=== PATIENT | male | born 1945 | race Caucasian/White ===

== ENCOUNTER 2019-04-18 16:22 | Inpatient (IN) | payer OTHER ==
[~2019-04-18] VITALS: Ht 182.9 cm; Wt 63.5 kg
[~2019-04-18 16:22] MED LIST: LISI20 PO
[2019-04-18] MEDS ORDERED: ASPI325 PO (17:13)
[2019-04-18] MEDS ORDERED: Prinivil10 MG PO (17:13)
[2019-04-18 17:35] LABS: BASOPHILS ABSOLUTE AUTO 0.04 K/mm3 (0.00-0.23); BASOPHILS PERCENT AUTO 0 % (0-2); EOSINOPHILS ABSOLUTE AUTO 0.07 K/mm3 (0.00-0.68); EOSINOPHILS PERCENT AUTO 1 % (0-6); Hematocrit 25.1 % (37.0-53.0); Hemoglobin 8.8 g/dL (13.5-17.5); IMMATURE GRAN ABSOLUTE AUTO 0.04 K/mm3 (0.00-0.10); IMMATURE GRAN PERCENT AUTO 0 % (0-1); LYMPHOCYTES ABSOLUTE AUTO 1.13 K/mm3 (0.84-5.20); LYMPHOCYTES PERCENT AUTO 12 % (21-46); MONOCYTES ABSOLUTE AUTO 1.02 K/mm3 (0.16-1.47); MONOCYTES PERCENT AUTO 11 % (4-13); Mean Corpuscular HGB 37.6 pg (26.0-34.0); Mean Corpuscular HGB Conc 35.1 g/dL (31.5-36.5); Mean Corpuscular Volume 107 fL (80-100); Mean Platelet Volume 9.2 fL (9.1-12.4); NEUTROPHILS ABSOLUTE AUTO 6.91 K/mm3 (1.96-9.15); NEUTROPHILS PERCENT AUTO 75 % (41-73); Platelet Count 245 K/mm3 (150-400); RDW Coefficient Variation 12.3 % (11.7-14.2); RDW Standard Deviation 47.9 fL (35.1-46.3); Red Blood Cell Count 2.34 M/mm3 (4.30-5.90); White Blood Cell Count 9.21 K/mm3 (4.00-11.30)
[2019-04-18 17:49] LABS: Albumin, Blood 1.9 g/dL (3.4-5.0); Albumin/Globulin Ratio 0.6 (0.8-1.8); Bilirubin, Total 0.5 mg/dL (0.1-1.0); Calcium, Blood 7.2 mg/dL (8.5-10.1); Creatinine, Blood 2.36 mg/dL (0.60-1.20); Potassium, Blood 4.7 mmol/L (3.5-5.5); Total Protein, Blood 4.9 g/dL (6.4-8.2); Troponin I 0.029 ng/mL (0.000-0.040)
[2019-04-18 20:31] LABS: Source, Urine Catheter
[2019-04-18] MEDS ORDERED: Zocor20 MG PO (20:32)
[2019-04-18] MEDS ORDERED: SENN187 PO (20:32)
[2019-04-18] MEDS ORDERED: ASCO500 PO (20:33)
[2019-04-18] MEDS ORDERED: ZINC220 PO (20:33)
[2019-04-18 20:34] LABS: Phosphorus, Blood 2.9 mg/dL (2.5-4.9)
[2019-04-18 20:35] LABS: Appearance, Urine Turbid (Clear); Bilirubin, Urine Neg (Neg); Blood, Urine 5+ (Neg); Color, Urine Brown (P-Yellow); Glucose Qualitative, Urine Neg (Neg); Ketones, Urine 1+ (Neg); Leukocyte Esterase, Urine 2+ (Neg); Nitrite, Urine Pos (Neg); Protein, Urine 4+ (Neg); Specific Gravity, Urine 1.015 (1.003-1.022); Urobilinogen, Urine NORM (Normal)
[2019-04-18 20:41] LABS: Vancomycin, Random 26.2 ug/mL
[2019-04-18 20:47] LABS: Bacteria Few /hpf; Red Blood Cells, Urine TNTC /hpf (0-2); Squamous Epithelial Cells Few /hpf (Few)
[2019-04-18 21:20] LABS: International Normalized Ratio 0.97; Prothrombin Time Results 10.3 Sec (9.7-11.5)
--- NOTE | 2019-04-18 23:30 | NUR ---
ASSUMED CARE- PT ARRIVES TO PCU2 FROM ER AT APPROXIMATELY 2300 THIS EVENING. PT IS ALERT AND ORIENTED TO SELF AND TOWN, BUT NOT ORIENTED TO PLACE, DATE/TIME OR EVENT. PT IS VERY PLEASANT AND FOLLOWING DIRECTIONS WELL. VSS. PT SLID OVER TO HOSPITAL BED VIA SLIDER SHEET. LUNG SOUNDS COARS IN SANDEEP AND DIMINISHED THROUGHOUT. PT NOTED TO HAVE EDEMA TO BILATERAL THIGHS, THIGHS, AND BUE'S THAT IS NON-PITTING. BLE'S WITH MULTIPLE DRY, OPEN SORES AND REDNESS FROM CELLULITIS, NO DRAINAGE NOTED FROM OPEN SPOTS- PHOTOS TAKEN AND PLACED IN CHART BY [employer] SOFTWARE DEVELOPMENT ENGINEER. CORCORAN CATHETER PATENT AND DRAINING VERY SMALL AMOUNT OF DARK BROWN/RED URINE. WILL CONTINUE WITH ADMISSION AND ASSESSMENT. PT ORIENTED TO PLACE, DATE AND UNIT. CALL LIGHT SYSTEM EXPLAINED AND CALL LIGHT PLACED IN REACH. BED ALARM SET FOR SAFETY.
[2019-04-18] MEDS ORDERED: ALBU2.5V5 NEB (23:33)
[2019-04-18] MEDS ORDERED: ATEN25 PO (23:33)
[2019-04-18] MEDS ORDERED: ENOX40I SC (23:34)
[2019-04-18] MEDS ORDERED: FOLI1 PO (23:34)
[2019-04-18] MEDS ORDERED: MAGOXI400 PO (23:39)
[2019-04-18] MEDS ORDERED: LORA1 PO (23:39)
[2019-04-18] MEDS ORDERED: THERA1 EACH PO (23:39)
[2019-04-18] MEDS ORDERED: Nicoderm Cq1 EACH TOP (23:40)
[2019-04-18] MEDS ORDERED: B-1100 MG PO (23:41)
[2019-04-19 04:06] LABS: Hematocrit 26.3 % (37.0-53.0); Hemoglobin 9.1 g/dL (13.5-17.5); Mean Corpuscular HGB 37.4 pg (26.0-34.0); Mean Corpuscular HGB Conc 34.6 g/dL (31.5-36.5); Mean Corpuscular Volume 108 fL (80-100); Mean Platelet Volume 9.4 fL (9.1-12.4); Platelet Count 259 K/mm3 (150-400); RDW Coefficient Variation 11.9 % (11.7-14.2); RDW Standard Deviation 47.2 fL (35.1-46.3); Red Blood Cell Count 2.43 M/mm3 (4.30-5.90); White Blood Cell Count 9.72 K/mm3 (4.00-11.30)
[2019-04-19 04:33] LABS: Alanine Aminotransfer (ALT/SGP 32 U/L (12-78); Albumin, Blood 2.1 g/dL (3.4-5.0); Albumin/Globulin Ratio 0.7 (0.8-1.8); Alk Phos 83 U/L (50-136); Anion Gap 11 mmol/L (6-16); Aspartate Aminotrans (AST/SGOT 58 U/L (12-37); Bilirubin, Total 0.6 mg/dL (0.1-1.0); Blood Urea Nitrogen 31 mg/dL (8-24); Bun/Creatinine Ratio 11.9 (12.0-20.0); CO2, Blood 16 mmol/L (21-32); CPK Creatine Kinase 203 U/L (39-308); Calcium, Blood 7.6 mg/dL (8.5-10.1); Chloride, Blood 102 mmol/L (98-108); Creatinine, Blood 2.61 mg/dL (0.60-1.20); Globulin, Blood 2.9 g/dL (2.2-4.0); Glomerular Filtration Rate 26 (60-); Glucose, Blood 53 mg/dL (70-99); Phosphorus, Blood 3.8 mg/dL (2.5-4.9); Potassium, Blood 4.7 mmol/L (3.5-5.5); Sodium, Blood 129 mmol/L (136-145)
--- NOTE | 2019-04-19 06:49 | NUR ---
SHIFT SUMMARY PT HAS REMAINED ORIENTED TO SELF THROUGHOUT THE NIGHT AND FOLLOWS DIRECTIONS, BUT IS DISORIENTED TO PLACE AND EVENT. CIWA UPON ARRIVAL OF 5 DUE TO VISUAL HALLUCINATION OF SEEING SOMEONE IN ROOM THAT WAS NOT PRESENT, BUT HALLUCINATIONS ARE NOT CONSTANT AND PT HAS NOT REPORTED SINCE.PT HAS SLEPT THROUGHOUT MUCH OF THE NIGHT, WAKING EASILY FOR CARE AND FALLING BACK TO SLEEP QUICKLY AFTER CARE PROVIDED. PT COOPERATIVE WITH INTERVENTIONS. CIWA HAS NOT INCREASED SINCE ARRIVAL. CORCORAN CATHETER REPLACED THIS AM BY BALE TIE MACHINE OPERATOR. NO OTHER CHANGES NOTED FROM INITIAL ASSESSMENT. WILL CONTINUE TO MONITOR AND REPORT TO ONCOMING SHIFT RN. BED IN LOW POSITION, CALL LIGHT IN REACH. BED ALARM SET FOR SAFETY.
--- NOTE | 2019-04-19 17:07 | NUR ---
SHIFT SUMMARY. PT IS CURRENTLY NPO, PT WAS ATTEMPTING TO DRINK MILK THIS AM AND STARTED COUGHING, PT WAS SUCTIONED AND SPEECH THERAPY SAW PT. PT IS CURRENTLY NPO. PT HAS HAD FAMILY AT THE BED SIDE OFF AND ON T/O THE SHIFT. PT'S CORCORAN IS DRAINING VERY SMALL AMOUNT OF TEA COLORED URINE. PT'S PEDRO LUIS ARE EDEMATOUS AND THIS HAS INCREASED T/O THE SHIFT WELL. PT IS IN NSR IN THE 60'S PER HAND SPRAY OPERATOR WITH NO CARDIAC EVENTS. PT'S CWIA SCORES HAVE BEEN 0. PT IS STILL CONFUSED BUT ABLE TO RECOGNIZE FAMILY AND FOLLOW DIRECTIONS. CALL LIGHT IN REACH, BED ALARM IS ON WILL CONTINUE TO MONITOR UNTIL REPORT IS GIVEN TO ONCOMING RN.
[2019-04-19 21:16] LABS: Albumin, Blood 1.8 g/dL (3.4-5.0); Anion Gap 14 mmol/L (6-16); Blood Urea Nitrogen 34 mg/dL (8-24); Bun/Creatinine Ratio 11.3 (12.0-20.0); CO2, Blood 18 mmol/L (21-32); Calcium, Blood 7.4 mg/dL (8.5-10.1); Chloride, Blood 100 mmol/L (98-108); Glomerular Filtration Rate 22 (60-); Glucose, Blood 108 mg/dL (70-99); Phosphorus, Blood 4.2 mg/dL (2.5-4.9); Potassium, Blood 4.7 mmol/L (3.5-5.5); Sodium, Blood 132 mmol/L (136-145)
--- NOTE | 2019-04-19 23:00 | NUR ---
PT AGITATION PT CALLING OUT FOR HELP INTO HALLWAY AFTER ASSITANCE HAD BEEN PROVIDED TO CALL SPOUSE. UPON ENTERING ROOM AND INQUIRING TO NEEDS, PT IS RAISING VOICE AND STATING HE NEEDS TO CALL HIS . PT GROWS INCREASINGLY AGITATED WHEN INFORMED THAT HE JUST SPOKE TO . PT IS CURRENTLY DISORIENTED TO PLACE AND EVENT STATING HE "HAS BEEN HERE FOR 5 DAYS AND WE HAVEN'T DONE ANYTHING FOR HIM". PT EDUCATED ON APPROPRIATE COMMUNICATION METHODS WITH STAFF AND UPDATED ON CURRENT TREATMENTS BEING IMPLEMENTED. PT ALSO UPDATED ON DISEASE PROCESS AND STATUS. CALMED SLIGHTLY AFTER PROVIDING UPDATE. FAMILY MEMBER STOPPED BY TO VISIT WITH PATIENT AND INFORMED THIS RN THAT PATIENT HAS WORSENING DEMENTIA AT BASELINE AND REPORTS THAT HE OFTEN BECOMES IRRITABLE AND ANGRY. PT CURRENTLY LIVES AT HOME WITH SPOUSE. FAMILY MEMBER EXPRESSED CONCERN OF PT AND SPOUSE BEING ABLE TO CARE FOR HIM. SALES COMMUNICATIONS MANAGER AND PALLIATIVE CARE CONSULT INPUT FOR ADVANCED CARE PLANNING AND DISCHARGE PLANNING.
[2019-04-20 03:48] LABS: Hematocrit 23.7 % (37.0-53.0); Hemoglobin 8.2 g/dL (13.5-17.5)
[2019-04-20 04:04] LABS: Albumin, Blood 1.8 g/dL (3.4-5.0); Anion Gap 10 mmol/L (6-16); Blood Urea Nitrogen 36 mg/dL (8-24); CO2, Blood 20 mmol/L (21-32); Calcium, Blood 7.2 mg/dL (8.5-10.1); Chloride, Blood 101 mmol/L (98-108); Glomerular Filtration Rate 22 (60-); Glucose, Blood 122 mg/dL (70-99); Magnesium, Blood 1.9 mg/dL (1.6-2.4); Phosphorus, Blood 4.2 mg/dL (2.5-4.9); Potassium, Blood 4.6 mmol/L (3.5-5.5); Sodium, Blood 131 mmol/L (136-145)
--- NOTE | 2019-04-20 06:10 | NUR ---
SHIFT SUMMARY PT HAS REMAINED ORIENTED TO SELF, TOWN, YEAR AND SITUATION THROUGHOUT SHIFT- CONTINUES TO BE DISORIENTED TO DATE AND TIME. VSS. MOSLTY COOPERATIVE WITH CARE. PT WITH NO FURTHER EPISODES OF IRRITABILITY FROM PREVIOUS EPISODE AND HAS SINCE BEEN VERY PLEASANT AND COOPERATIVE WITH CARE. URINE OUTPUT REMAINS MINIMAL, BUT HAS BECOME MORE ANGELA/YELLOW IN COLOR THROUGHOUT THE NIGHT. 24-HOUR URINE COMPLETE AT 0600 THIS AM. PT HAS SLEPT THROUGH MUCH OF THE NIGHT. DENIES PAIN. ORAL CARE PROVIDED WITH SUCTION SWABS AND OFFERED FREQUENTLY WHEN IN ROOM. NO OTHER CHANGES NOTED FROM INITIAL ASSESSMENT. WILL CONTINUE TO MONITOR AND REPORT TO ONCOMING SHIFT RN. BED IN LOW POSITION, CALL LIGHT IN REACH. BED ALARM SET FOR SAFETY.
[2019-04-20 07:11] LABS: Protein, Urine Quantitative 52.6 mg/dL (0.0-11.9)
--- NOTE | 2019-04-20 08:47 | NUR ---
NURSING PCU DAYSHIFT: Assumed care of pt at approx 0700. Arouses to verbal stimuli though falls back asleep easily, answers basic questions, appears forgetful, slow to respond. Denies any pain/discomfort. Skin is fragile w/scattered bruising on UE's, scattered abrasions to LE. General weakness noted, requires assistance w/positioning in bed. Tele in place, NSR, no c/o CP/pressure, SBP 140's, no c/o CP/pressure, mild edema noted to hips/thighs as well as BUE's. L/S coarse in mid and upper lobes, O2 sat mid 90's on RA, respirations shallow, unlabored, no noted cough. Abd SNT, BT hyperactive, FC present and draining well. PIV present in LFA, clinimix infusing at 75cc/hr, sodium bicarb infusing at 50cc/hr. No s/s of acute distress, pt denies any current needs. Awaiting rounding from PMD. Call light in reach, bed alarm set for safety purposes. Cont to monitor for any changes.
--- NOTE | 2019-04-20 16:52 | NUR ---
NURSING PCU DAYSHIFT TRANSFER SUMMARY: No significant changes noted t/o the shift. Pt more alert and interactive w/staff in the afternoon. Remains forgetful though is cooperative w/care. Denies any pain/discomfort. Seen by ST, remains NPO at this time. Worked w/PT/OT, dangled on bedside, tolerated fairly well. Several family members at bedside t/o shift, plan of care discussed w/spouse, questions answered. Pt changed to medical status w/o tele, rpt provided to accepting RN. [facility] by [facility] for [facility] shunt [facility], awaiting reports. Spouse notified of new room assignment, denied questions. Cont to monitor until xfer is completed.
--- NOTE | 2019-04-20 17:01 | NUR ---
Pt resting not in a this time. Review of patient with nursing, and post acute care nurse. Review of [facility] records and chart. Pt is non abulatory and NPO. Review of the therapists notes and labs. pt able to answer some questions and tell me what is on TV. He constantly coughs and swallows possibly sputem. He denies headache or pain, he is mad at for leaving and not bringing him food. He sratches his chest and abdomen frequently. He can turn his head but would not lift it off the pillow. Pt is service conneted [place] 50 to 100%. Review of chart shows contact by [place] for neuro consult. Requested more records from [place] per nursing request also requested advance directive. Pt pps score is 20%. with pt comorbid conditions and malnutrition he may not tolerate any treatment or interventions. Patient is high risk for failure of a PEG tube and may be contraindicated due to his dementia. Review of patient with post acute care nurse. Suggest contact [facility] and discuss with and physicians plan of care tomorrow. If petrolia will see him and do work up. Need to discuss with their wishes. Hope is we will obtain his advance directive as a guide. chartered wealth manager will see what is offered to help with placement. Hospice may be best choice for pt and family to have some meaningfull time and reduce suffering. Pt is a DNR
--- NOTE | 2019-04-20 18:15 | NUR ---
PT. ARRIVED TO ROOM #360 VIA BED FROM U-2. PT. WANTING ME TO CALL TAXI SO HE CAN GET INTO THE OTHER BED. PT. SOMEWHAT CONFUSED AND KEEPS TRYING TO GET ANYONE HE CAN TO GET HIM A BURRITO. PT. CACHECTIC WITH WOUNDS ON HIS BLE WITH SCABS.PT. HAS AN 18 GA IV IN HIS LFA. CORCORAN CATHETER IN PLACE.
--- NOTE | 2019-04-20 19:53 | NUR ---
PT YELLING AND SCREAMING THAT HE NEEDS GO HOME VIA TAXI JACQUES, PT ATTEMPTED PULL AT CORCORAN (DISCONNECTED CATHETER FROM BAG), BAG RECONNECTED BY THIS NURSE DRAINING CLEAR YELLOW FLUID. Ewa GUTIERREZ NP CALLED AND ADVISED OF ABOVE WITH ORDERS FOR HALDOL 4MG, IVP X 1 AND RESTRAINTS--SOFT WRIST AND BILL VEST.
[2019-04-21 05:08] LABS: Hematocrit 24.2 % (37.0-53.0); Hemoglobin 8.5 g/dL (13.5-17.5)
--- NOTE | 2019-04-21 05:25 | NUR ---
SHIFT SUMMARY: 73 Y/O MALE HAD RESTLESS NIGHT AT BEGINNING OF SHIFT WITH PATIENT ATTEMPTING CLIMB OOB, PULLED CORCORAN BAG APART FROM CATHETER GRABING AT IV WHILE YELLING LOUDLY AT STAFF; PT WAS PLACED IN BILL VEST AND BILATERAL SOFT WRIST RESTRAINTS AFTER MD ORDER WAS RECEIVED VIA Ewa GUTIERREZ NP. PT IS ALERT TO PERSON ONLY, ABLE TO FOLLOW SIMPLE VERBAL COMMANS. PTS IV IN LFA WAS SQ WITHY ENTIRE CATHETER DC/D INTACT WITH PRESSURE DRESSING APPLIED AND NEW IV RESTARTED RFA, 20 GUAGE PER Ewa VACA RN. PTS LUNG SOUNDS ARE COARSE THROUGHOUT. PT STATED LAST NIGHT, "I COULD SURE USE A SHOT OF WHISKEY RIGHT NOW"! PTS BED ALARM APPLIED, BED LOW POSITION, CALL LIGHT AT SIDE.
[2019-04-21 05:36] LABS: Albumin, Blood 1.9 g/dL (3.4-5.0); Anion Gap 10 mmol/L (6-16); Blood Urea Nitrogen 47 mg/dL (8-24); Bun/Creatinine Ratio 15.5 (12.0-20.0); CO2, Blood 22 mmol/L (21-32); Calcium, Blood 7.5 mg/dL (8.5-10.1); Chloride, Blood 104 mmol/L (98-108); Creatinine, Blood 3.04 mg/dL (0.60-1.20); Glomerular Filtration Rate 22 (60-); Glucose, Blood 108 mg/dL (70-99); Phosphorus, Blood 4.5 mg/dL (2.5-4.9); Potassium, Blood 4.4 mmol/L (3.5-5.5); Sodium, Blood 136 mmol/L (136-145)
--- NOTE | 2019-04-21 18:43 | NUR ---
SHIFT SUMMARY PATIENT ALERT TO SELF AND FAMILY. CONFUSED. BEDREST. Q2 REPOSITION. SOFT WRIST RESTRAINTS IN PLACE DUE TO PATIENT PULLING AT CATHETER AND IV. Q 2 RESTRAINT ASSESSMENTS. C/O PAIN TO BLE THIS SHIFT, RN MEDICATED PER E DEC. DENIES SOB OR NAUSEA. ON RA. FAMILY AT THE BEDSIDE. CLINIMIX RUNNIG. BED ALARM IS ON. PATIENT YELLS OUT AT TIMES. RN MEDICATED X1 WITH PRN HYDRALAZINE FOR HIGH BP WHICH RESOLVED. NO ACUTE CHANGES THIS SHIFT. RN WILL CONTINUE TO MONITOR.
--- NOTE | 2019-04-21 19:04 | NUR ---
review of plan of care with daughter and her needs
--- NOTE | 2019-04-22 03:25 | NUR ---
0100 PTS BILATERAL LOWER FEET HAVE LARGE AMOUNT DRIED SCALLY SKIN NOTED AROUND NUMEROUS WOUNDS. THIS NURSE SOAKED FEET IN BASIN WARM WATER AND WASHED FEET GENTLY WITH LARGE AMOUNTS SCALLY SKIN REMOVED. THIS NURSE RETOOK MORE PICTURES AND APPLIED MEPLEX DRESSING TO RIGHT HEEL, LEFT HEEL, LEFT ANKLE ANTERIOR AND LATERAL WOUNDS ALL STAGE III ULCERS. PT TOLERATED PROCEDURES WELL.
[2019-04-22 04:41] LABS: Hematocrit 24.2 % (37.0-53.0); Hemoglobin 8.4 g/dL (13.5-17.5)
--- NOTE | 2019-04-22 04:42 | NUR ---
SHIFT SUMMARY: 73 Y/O MALE RESTED COMFORTABLY ALL SHIFT. PT OCCASIONALLY ATTEMPED TO GRAB AT CORCORAN AND IV'S WITH SOFT WRIST RESTRAINTS MAINTAINED. PT IS ALERT AND ORIENTED TO PERSON ONLY, ABLE TO FOLLOW VERY SIMPLE VERBAL COMMANDS. PTS BILATERAL LOWER EXTREMITIES HAVE NUMEROUS SCABS/WOUNDS (LEFT AND RIGHT ANKLES PICTURES TAKEN AND PLACED ON CHART) WITH MEPLEX DRESSINGS APPLIED. PTS IV LEFT WRIST HAS GOOD BLOOD RETURN--ARM IS EDEMATOUS AT +3; RIGHT ELBOW AND SHOULDER IS EDEMATOUS AT +3 WITH SMALL AMOUNT CLEAR FLUID LEAKING. ORAL CARE PROVIDED Q4H, TOLERATED WELL. PTS HAS 24 HOUR URINE COLLECTION ONGOING TO END AT 0815 TODAY WITH CLEAR YELLOW URINE NOTED. PT DENIES PAIN OR NAUSEA. PT WAS REPOSITIONED Q2H BY STAFF. PTS BED ALARM APPLIED, BED LOW POSITION, CALL LIGHT AT SIDE.
[2019-04-22 05:05] LABS: Anion Gap 6 mmol/L (6-16); Blood Urea Nitrogen 59 mg/dL (8-24); CO2, Blood 24 mmol/L (21-32); Calcium, Blood 7.6 mg/dL (8.5-10.1); Chloride, Blood 108 mmol/L (98-108); Glomerular Filtration Rate 21 (60-); Glucose, Blood 101 mg/dL (70-99); Magnesium, Blood 2.1 mg/dL (1.6-2.4); Phosphorus, Blood 5.2 mg/dL (2.5-4.9); Potassium, Blood 4.6 mmol/L (3.5-5.5); Sodium, Blood 138 mmol/L (136-145)
[2019-04-22 09:01] LABS: Protein, Urine Quantitative 13.7 mg/dL (0.0-11.9)
--- NOTE | 2019-04-22 09:10 | NUR ---
PT ABLE TO AWAKEN, ABLE TO TELL ME NAME AND NAME. STATES AGE IS 62, WHEN IS 73. DENIED PAIN. LOOKS PALE. FALLS BACK TO SLEEP. H/R REG, NO MURMER NOTED. NO TELE. LUNGS COARSE. PRESENTS MORE FROM BRONCHIAL AREA. SUCTIONED. PT NOT ABLE TO COUGH WELL. VERY LIGHT COUGH. ENCOURAGED, NOT FOLLOWING DIRECTION. THICK SPUTUM.SUCTIONED. ON R.A. RESP LIGHT EASY, UNLABORED. BT HYPO. IS NPO. CLINIMIX RUNNING AT 75. LAST BM UNKNOWN BY PT. VOIDS CORCORAN CATH. CLEAR YELLOW FLUID NOTED. IS BEDBOUND AT THIS TIME. BED IN LOW POSITION, CALL LITE IN REACH, BED ALARM ONFOR SAFETY. IS IN SOFT WRIST RESTRAINTS. PULLING AT LINES.
--- NOTE | 2019-04-22 13:34 | NUR ---
Pt visit this afternoon. Pt resting in bed with his eyes closed. Significant secretions noted otherwise Pt appears comfortable. Pt's Brook and daughter present during visit. Engaged in therapeutic discussion regarding goals of care. Listened as Brook expressess concerns that Pt has been suffering for quite some time. Brook reports Pt has been declining for sometime. Pt now has been chair bound, is incontinent of bowel and bladder, and requires assistance with bathing and dressing. Brook reports brochures were given by [facility] and has chosen [facility]. Discussed option of placing Pt on comfort care. Educated on comfort care philosophy and hospice philosophy with V/U made by Brook. Brook chooses to have Pt placed on comfort care during his hospital stay. Offered emotional support as family became tearful. Instructed family to contact palliative care for any questions or concerns. Family report no other concerns at this time. Spoke with Dr Brewer regarding family's decision to be placed on comfort care and discharge with hospice. Dr Brewer reports she will place orders after visiting with Pt and family. Spoke with pharmacist critical care Evelin and reported family's decision for [facility]. Palliative Care will remain available.
--- NOTE | 2019-04-22 17:01 | NUR ---
PT MOVED TO COMFORT CARE. SPOKE TO DR THACKER. SHE OKAYED LEAVE IV IN, OR IF PT PULLS, WILL LEAVE OUT. OKAYED REMOVE WRIST RESTRAINTS. OKAY LEAVE CORCORAN IF POSSIBLE. IF TRYING TO PULL, OKAY PULL CORCORAN IF NEED. STATES WAS URINATING PRIOR TO HOSP VISIT. WAS HOWEVER INCONTINENT. TALKED TO PT. HE OKAY TO LEAVE CORCORAN IN. ADVISED NOT TO PULL OUT. AND THAT WOULD TURN IV OFF. ALSO THAT RELEASING WRIST RESTRAINTS. PT VERBALIZED UNDERSTANDING.
--- NOTE | 2019-04-22 18:33 | NUR ---
PT CALM THIS AFT. DISCUSSED REMOVING WRIST RESTRAINTS AND NOT PULLING CORCORAN OR IV. PT VERBALIZED UNDERSTAANDING. ALERT AND ORIENTED TO FAM AND SELF. REMOVED RESTRAINTS THIS AFT. MOVED TO COMFORT CARE. IV FLUIDS STOPPED. SPOKE TO DAUGHTER AND . PT SAT UP TO DRINK SOME WATER. SLIGHT COUGHING WITH SIPS. OTHERWISE DID ADEQUATELY. BED IN LOW POSITION, CALL LITE IN REACH, BED ALARM ON FOR SAFETY
--- NOTE | 2019-04-23 04:54 | NUR ---
SHIFT SUMMARY: 73 Y/O MALE ON COMFORT CARE WITH TURNS Q2H BY STAFF PERFORMED. PT CONTINUES TO BE NPO WITH INABILITY TO TOLERATE ANY FLUIDS NOTED. PT ALERT TO PERSON ONLY AND OPENS EYES WHEN TURNED ONLY OR SPOKEN TO IN VERY LOUD VOICE. PT HAD NO ORAL INTAKE ALL SHIFT, CORCORAN HAD ADEQUATE AMOUNTS CLEAR YELLOW FLUID NOTED. PT HAD ORAL AND CATHETER CARE PERFORMED BY STAFF. PT IS DNR. PT IS TENTATIVELY SCHEDULED FOR POSSIBLE DISCHARGE TO SNF TODAY AT 1100. PTS FAMILY ALL AWARE OF CURRENT MEDICAL CONDITION (PTS BROTHER AT SIDE LAST PM). PT BED ALARM APPLIED, BED LOW POSITION, CALL LIGHT AT SIDE.
[2019-04-23] MEDS ORDERED: MORP20L SL (10:52)
[2019-04-23] MEDS ORDERED: Transderm-Scop1 EACH TOP (10:54)
[2019-04-23] MEDS ORDERED: ONDA4ODT MM (10:56)
[2019-04-23] MEDS ORDERED: BISA10S PR (10:57)
--- NOTE | 2019-04-23 13:06 | NUR ---
PT STARTED SHIFT NOT RESPONDING, BUT DID WAKE A BIT AND WOULD TRY AND TALK. PT THEN STARTED TO LOOK UNCOMFORTABLE AND WAS TREATED PER EMAR. PT THEN WAS BACK TO SLEEPING AND WOULD TAKE A LOT OF LONG DRAWN OUT BREATHS. MINIMAL WET SOUNDS TO BREATHING. PT TURNED Q 2HRS. CALLED REPORT PRIOR TO TRANSFER TO [facility]. PT WAS STILL RESTING QUEITLY WHEN [facility] ARRIVED AT 1300. PERSONAL BELONGINGS HAVE BEEN SENT.
[2019-04-25 08:08] LABS: ANTIGLOMERULAR BM AB 3 units (0-20)
[2019-04-25 16:06] LABS: A/G RATIO 0.9 (0.7-1.7); ALBUMIN 2.2 g/dL (2.9-4.4); ALPHA-1-GLOBULIN 0.3 g/dL (0.0-0.4); ALPHA-2-GLOBULIN 0.6 g/dL (0.4-1.0); BETA GLOBULIN 0.9 g/dL (0.7-1.3); GAMMA GLOBULIN 0.9 g/dL (0.4-1.8); GLOBULIN, TOTAL 2.7 g/dL (2.2-3.9); IMMUNOGLOBULIN A, QN, SERUM 539 mg/dL (61-437); IMMUNOGLOBULIN G, QN, SERUM 723 mg/dL (700-1600); IMMUNOGLOBULIN M, QN, SERUM 161 mg/dL (15-143); M-SPIKE Not Observed g/dL (Not Observed); PROTEIN, TOTAL, SERUM 4.9 g/dL (6.0-8.5)
[2019-04-26 14:06] LABS: M-SPIKE, % Not Observed % (Not Observed); PROTEIN,TOTAL,URINE 7.4 mg/dL (Not Estab.)
[2019-05-01 19:05] LABS: ANA DIRECT Negative (Negative); ANTIMYELOPEROXIDASE (MPO) ABS <9.0 U/mL (0.0-9.0); ANTIPROTEINASE 3 (PR-3) ABS <3.5 U/mL (0.0-3.5); ATYPICAL PANCA <1:20 titer (Neg:<1:20); CYTOPLASMIC (C-ANCA) <1:20 titer (Neg:<1:20); PERINUCLEAR (P-ANCA) <1:20 titer (Neg:<1:20)
== END 2019-04-23 12:59 | DRG 682 ==
LOC: ER 16:22 → PCU 21:39 → MEDS 21:39 → PCU 22:56 → MEDS 04-20 18:00 → ENPENDDIS 04-23 10:22 → MEDS 04-23 12:59
PROVIDERS: Emergency Medicine; Internal Medicine Nephrology; Nurse Practitioner Acute Care; ADMIT Internal Medicine
DX: N17.0 Acute kidney failure with tubular necrosis (principal); G92 Toxic encephalopathy; I13.0 Hypertensive heart and chronic kidney disease with heart failure and stage 1 through stage 4 chronic kidney disease, or unspecified chronic kidney disease; I50.32 Chronic diastolic (congestive) heart failure; E87.2 Acidosis; E44.0 Moderate protein-calorie malnutrition; L03.116 Cellulitis of left lower limb; F05 Delirium due to known physiological condition; Z68.1 Body mass index [BMI] 19.9 or less, adult; G91.2 (Idiopathic) normal pressure hydrocephalus; F10.27 Alcohol dependence with alcohol-induced persisting dementia; G30.9 Alzheimer's disease, unspecified; Z51.5 Encounter for palliative care; N18.3 Chronic kidney disease, stage 3 (moderate); E83.39 Other disorders of phosphorus metabolism; E16.1 Other hypoglycemia; R62.7 Adult failure to thrive; J44.9 Chronic obstructive pulmonary disease, unspecified; F02.80 Dementia in other diseases classified elsewhere, unspecified severity, without behavioral disturbance, psychotic disturbance, mood disturbance, and anxiety; R13.10 Dysphagia, unspecified; I25.10 Atherosclerotic heart disease of native coronary artery without angina pectoris; E86.9 Volume depletion, unspecified; I95.9 Hypotension, unspecified; E88.09 Other disorders of plasma-protein metabolism, not elsewhere classified; R31.9 Hematuria, unspecified; Z98.2 Presence of cerebrospinal fluid drainage device; F10.20 Alcohol dependence, uncomplicated; I73.9 Peripheral vascular disease, unspecified; E78.5 Hyperlipidemia, unspecified; F17.210 Nicotine dependence, cigarettes, uncomplicated; Z66 Do not resuscitate; D53.9 Nutritional anemia, unspecified; E83.51 Hypocalcemia; G31.2 Degeneration of nervous system due to alcohol
CPT/HCPCS: 36415; 70450; 71046; 76770; 80053; 80069; 80202; 81001; 81050; 82330; 82533; 82550; 82607; 82746; 82784; 82947; 83516; 83520; 83735; 83880; 84100; 84153; 84156; 84165; 84166; 84443; 84484; 84550; 85014; 85018; 85025; 85027; 85610; 86038; 86256; 86334; 86335; 87040; 87086; 92526; 92610; 93005; 93010; 93308; 93321; 96365; 96366; 96375; 97110; 97162; 97166; 97530; 97535; 99285-25; C9113; G0103; J0360; J0610; J0690; J0696; J1630; J1644; J7030; J7050; J7070; J7131; J7799; P9046